=== PATIENT | male | born 1975 | race Caucasian/White ===

== ENCOUNTER 2017-05-20 19:50 | Emergency (ER) | payer SELFPAY ==
[2017-05-20 19:56] VITALS: BP 136/79
--- NOTE | 2017-05-20 20:04 | UC ---
UC Dental HPI - HPI Summary HPI Summary: Right sides facial and jaw pain spreading in to ear, right lower dental pain and swelling - History of Current Complaint Chief Complaint: UCGeneralIllness Stated Complaint: EAR,TOOTH,JAW PAIN Time Seen by Provider: 05/20/17 19:55 Hx Obtained From: Patient Onset/Duration: Sudden Onset, Lasting Hours Severity: Moderate Pain Intensity: 7 Pain Scale Used: 0-10 Numeric Aggravating: Nothing Alleviating: Nothing Related History: Swelling - Allergies/Home Medications Allergies/Adverse Reactions: Allergies Allergy/AdvReac Type Severity Reaction Status Date / Time No Known Allergies Allergy Verified 05/20/17 19:52 PMH/Surg Hx/FS Hx/Imm Hx Previously Healthy: Yes - Surgical History Surgical History: Yes Surgery Procedure, Year, and Place: SCREWS PLACED IN [place] - Family History Known Family History: Positive: None - Social History Occupation: Employed Full-time Lives: With Family Alcohol Use: Occasionally Substance Use Type: None Smoking Status (MU): Never Smoked Tobacco Review of Systems Constitutional: Negative Skin: Negative Eyes: Negative ENT: Dental Pain - right lower jaw Respiratory: Negative Cardiovascular: Negative Gastrointestinal: Negative Genitourinary: Negative Motor: Negative Neurovascular: Negative Musculoskeletal: Negative Neurological: Negative Psychological: Negative Is Patient Immunocompromised?: No All Other Systems Reviewed And Are Negative: Yes Physical Exam Triage Information Reviewed: Yes Appearance: Well-Appearing, No Pain Distress, Well-Nourished Vital Signs: Initial Vital Signs Temp 98 F 05/20/17 19:53 Pulse 73 05/20/17 19:53 Resp 20 05/20/17 19:53 BP 136/79 05/20/17 19:53 Pulse Ox 100 05/20/17 19:53 Vital Signs Reviewed: Yes Eye Exam: Normal Eyes: Positive: Conjunctiva Clear ENT Exam: Normal ENT: Positive: Normal ENT inspection, Hearing grossly normal, Pharynx normal, TMs normal. Negative: Nasal congestion, Nasal drainage, Tonsillar swelling, Trismus, Muffled/hoarse voice Dental Exam: Normal Dental: Positive: Percussion Tenderness @ - right lower jaw, Abscess @ Neck exam: Normal Neck: Positive: Supple, Nontender Respiratory Exam: Normal Respiratory: Positive: Chest non-tender, No respiratory distress, No accessory muscle use Cardiovascular Exam: Normal Cardiovascular: Positive: RRR, No Murmur, Pulses Normal, Brisk Capillary Refill Musculoskeletal Exam: Normal Musculoskeletal: Positive: Strength Intact, ROM Intact, No Edema Neurological Exam: Normal Neurological: Positive: Alert, Muscle Tone Normal Psychological Exam: Normal Skin Exam: Normal Dental Complaint Course/Dx - Course Course Of Treatment: Pain med Amoxicillin dental list follow with dentist tyshawn - Differential Dx/Diagnosis Differential Diagnosis/Dx: Dental Abscess, Dental Caries, Odontogenic Pain, Peridontic Disease, Peritonsillar Abcess Provider Diagnoses: Right lower jaw dental pain, Discharge - Discharge Plan Condition: Stable Disposition: HOME Prescriptions: Amoxicillin PO (*) [Amoxicillin 500 MG CAP*] 500 mg PO TID #30 cap oxyCODONE/Acetamin 5/325 MG* [Percocet 5/325 TAB*] 1 tab PO Q6H PRN #10 tab MDD 4 PRN Reason: pain Patient Education Materials: Dental Abscess (ED), Toothache (ED) Referrals: Mukesh Hernandez MD [Primary Care Provider] - If Needed Additional Instructions: Follow with Dentist next week
== END 2017-05-20 20:08 | disposition home or self-care (01) ==
LOC: UCEAST 19:50
DX: R68.84 Jaw pain (principal); K08.89 Other specified disorders of teeth and supporting structures
CPT/HCPCS: 99212; G0463

== ENCOUNTER 2018-03-29 15:04 | Emergency (ER) | payer BC ==
[2018-03-29 15:24] VITALS: BP 122/84
--- NOTE | 2018-03-29 15:32 | UC ---
Dental HPI - HPI Summary HPI Summary: This is william Ward documenting for Swapnil Hankins MD. This patient is a 42 year old M presenting to [facility] with a chief complaint of left, lower dental pain that began 2 days ago. The patient rates the pain 8/10 in severity. Symptoms aggravated by nothing. Symptoms alleviated by nothing. Patient reports L ear pain and L cheek swelling. Patient denies difficulty swallowing. Allergies reviewed. Medications reviewed. - History of Current Complaint Chief Complaint: UCDentalProblem Stated Complaint: JAW SWELLING,PAIN Time Seen by Provider: 03/29/18 15:26 Hx Obtained From: Patient Onset/Duration: Sudden Onset, Lasting Days, Still Present Severity: Severe Pain Intensity: 8 Pain Scale Used: 0-10 Numeric Aggravating Factor(s): Nothing Alleviating Factor(s): Nothing - Allergies/Home Medications Allergies/Adverse Reactions: Allergies Allergy/AdvReac Type Severity Reaction Status Date / Time No Known Allergies Allergy Verified 03/29/18 15:24 PMH/Surg Hx/FS Hx/Imm Hx Previously Healthy: Yes Endocrine History: Other Other Endocrine History: Negative diabetes Cardiovascular History: Other Other Cardiovascular History: Negative HTN - Surgical History Surgical History: Yes Surgery Procedure, Year, and Place: SCREWS PLACED IN [place] - Family History Known Family History: Negative: Cardiac Disease, Diabetes - Social History Occupation: Employed Full-time Lives: With Family Alcohol Use: Occasionally Substance Use Type: Marijuana Smoking Status (MU): Former Smoker When Did the Patient Quit Smoking/Using Tobacco: 10 years Review of Systems ENT: Dental Pain, Ear Ache, Other - Negative difficulty swallowing Musculoskeletal: Edema All Other Systems Reviewed And Are Negative: Yes Physical Exam - Summary Physical Exam Summary: General: well-appearing, no pain distress Skin: warm, color reflects adequate perfusion, dry Head: normal Eyes: EOMI, MIGUELANGEL ENT: oral pharynx open, uvula midline, normal voice Dental: L lower rear molar, large cavity, gingival swelling, swelling left lower mandible Neck: supple, nontender Respiratory: CTA, breath sounds present Cardiovascular: RRR Abdomen: soft, nontender Bowel: present Musculoskeletal: normal, strength/ROM intact Neurological: sensory/motor intact, A&O x3 Psychological: affect/mood appropriate Triage Information Reviewed: Yes Vital Signs: Initial Vital Signs Temp 98.2 F 03/29/18 15:20 Pulse 66 03/29/18 15:20 Resp 18 03/29/18 15:20 BP 122/84 03/29/18 15:20 Pulse Ox 99 03/29/18 15:20 Vital Signs Reviewed: Yes Dental Complaint Course/Dx - Course Course Of Treatment: RX AMOX. F/U DENTIST. RECHECK SOONER IF WORSE. - Differential Dx/Diagnosis Provider Diagnoses: DENTAL ABSCESS Discharge - Sign-Out/Discharge Documenting (check all that apply): Patient Departure - Discharge Plan Condition: Stable Disposition: HOME Prescriptions: Amoxicillin PO (*) [Amoxicillin 500 MG CAP*] 500 mg PO TID #30 cap oxyCODONE/Acetamin 5/325 MG* [Percocet 5/325 TAB*] 1 tab PO Q4H PRN #6 tab MDD 6 PRN Reason: Pain Patient Education Materials: Toothache (ED) Referrals: Mukesh Hernandez MD [Primary Care Provider] - Additional Instructions: FOLLOW UP WITH YOUR DENTIST. GET RECHECKED FOR ANY WORSENING OF YOUR CONDITION OR QUESTIONS OR CONCERNS. - Billing Disposition and Condition Condition: STABLE Disposition: Home
== END 2018-03-29 15:40 | disposition home or self-care (01) ==
LOC: UCEAST 15:04
DX: K04.7 Periapical abscess without sinus (principal); Z87.891 Personal history of nicotine dependence
CPT/HCPCS: 99212; G0463

== ENCOUNTER 2019-08-04 14:29 | Emergency (ER) | payer SELFPAY ==
[2019-08-04 14:44] VITALS: BP 147/87
--- NOTE | 2019-08-04 14:53 | UC ---
Dental HPI - HPI Summary HPI Summary: 4-5 DAYS OF PAIN RIGHT LOWER WISDOM TOOTH. STATES IT IS IMPACTED AND ERODING INTO HIS SECOND MOLAR. [facility] AND PRESCRIBED AMOX. STATES THE PAIN IS INTOLERABLE AND KEEPING HIM UP. HAD LEFTOVER HYDROCODONE AND TYLENOL #3 - NOT HELPING. - History of Current Complaint Chief Complaint: UCDentalProblem Stated Complaint: DENTAL PAIN Time Seen by Provider: 08/04/19 14:44 Hx Obtained From: Patient Onset/Duration: Gradual Onset, Lasting Days, Still Present Severity: Severe Pain Intensity: 10 Pain Scale Used: 0-10 Numeric Aggravating Factor(s): Heat, Chewing Alleviating Factor(s): Other (see comments) - ICE - Allergies/Home Medications Allergies/Adverse Reactions: Allergies Allergy/AdvReac Type Severity Reaction Status Date / Time No Known Allergies Allergy Verified 08/04/19 14:44 Home Medications: Home Medications Amoxicillin PO (*) [Amoxicillin 500 MG CAP*] PO BID 08/04/19 [History] Ibuprofen TAB* [Advil TAB*] 1,200 mg PO PRN 08/04/19 [History] PMH/Surg Hx/FS Hx/Imm Hx Previously Healthy: Yes - Surgical History Surgical History: Yes Surgery Procedure, Year, and Place: SCREWS PLACED IN [place] - Family History Known Family History: Negative: Cardiac Disease, Diabetes - Social History Alcohol Use: Occasionally Substance Use Type: None Smoking Status (MU): Former Smoker When Did the Patient Quit Smoking/Using Tobacco: 10 years Review of Systems All Other Systems Reviewed And Are Negative: Yes Constitutional: Positive: Negative ENT: Positive: Dental Pain Respiratory: Positive: Negative Cardiovascular: Positive: Negative Gastrointestinal: Positive: Negative Physical Exam Triage Information Reviewed: Yes Appearance: Well-Nourished, Pain Distress - MODERATE/SEVERE Vital Signs: Initial Vital Signs Temp 97.7 F 08/04/19 14:41 Pulse 68 08/04/19 14:41 Resp 16 08/04/19 14:41 BP 147/87 08/04/19 14:41 Pulse Ox 100 08/04/19 14:41 Vital Signs Reviewed: Yes Eyes: Positive: Conjunctiva Clear ENT: Positive: Hearing grossly normal Neck: Positive: Supple, Nontender, No Lymphadenopathy Respiratory: Positive: No respiratory distress, No accessory muscle use Cardiovascular: Positive: Pulses Normal Abdomen Description: Positive: Soft Musculoskeletal: Positive: No Edema Neurological: Positive: Alert Psychological: Positive: Age Appropriate Behavior Skin: Negative: Rashes Dental Complaint Course/Dx - Course Course Of Treatment: PT WITH IMPACTED RIGHT LOWER WISDOM TOOTH WITH VISIBLE DECAY. ADVISED TO CONTINUE ANTIBIOTICS PRESCRIBED AND WILL GIVE PERIDEX MOUTH RINSE AND OXY/ APAP FOR PAIN. F/U WITH DENTIST OR ORAL SURGEON HA. 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 REFERENCE # : [id number] LIST OF DENTISTS AND ORAL SURGEONS PROVIDED. - Differential Dx/Diagnosis Provider Diagnosis: Impacted third molar tooth Discharge ED - Sign-Out/Discharge Documenting (check all that apply): Patient Departure All imaging exams completed and their final reports reviewed: No Studies - Discharge Plan Condition: Stable Disposition: HOME Prescriptions: Chlorhexidine MW 0.12% 473ML* [Peridex Mouth Wash 0.12%*] 15 ml SWISH SPIT BID # 1 bottle oxyCODONE/Acetamin 5/325 MG* [Percocet 5/325 TAB*] 1 tab PO Q6H PRN #20 tab MDD 4 PRN Reason: Pain - Moderate Patient Education Materials: Toothache (ED) Referrals: Mukesh Hernandez MD [Primary Care Provider] - If Needed Additional Instructions: CONTINUE THE ANTIBIOTICS FOR THE FULL COURSE. RINSE YOUR MOUTH WITH WATER AFTER EATING OR DRINKING ANYTHING. ANTISEPTIC MOUTH RINSE TWICE DAILY. TAKE IBUPROFEN NEEDED FOR PAIN, OXYCODONE FOR BREAKTHROUGH. FOLLOW-UP WITH A DENTIST OR ORAL SURGEON HA. IBUPROFEN MAX DOSE: 600MG (3 TABS) EVERY 6 HRS OR 800MG (4 TABS) EVERY 8 HRS OR NAPROXEN MAX DOSE: 440MG (2 TABS) EVERY 12 HRS TYLENOL MAX DOSE: 1000MG (2 EXTRA STRENGTH TABS) EVERY 8 HRS OR 650MG (2 REGULAR TABS) EVERY 6 HRS DENTISTS [facility] DDS Dentist Office [address], [place], [place] [id number] Opens at [address]am Dr[address] Telly Marinelli, [address]DE[address] [place] [address] Ishmael Kelly D.D.S. [address], [place], [place] [phone] Opens at 8am ORAL SURGERY [facility] Lucas Worrell [address] [place] [address] [facility] Mario Orona Jr., Darshana.S. [address], [address] [place] [address] [facility] Blake Martinez, AMANUELS [address] , [place] [address] - Billing Disposition and Condition Condition: STABLE Disposition: Home
== END 2019-08-04 15:23 | disposition home or self-care (01) ==
LOC: UCEAST 14:29
DX: K01.1 Impacted teeth (principal); Z87.891 Personal history of nicotine dependence
CPT/HCPCS: 99212; G0463